=== PATIENT | male | born 1960 | race African-American/Black ===

== ENCOUNTER 2019-04-18 07:30 | Inpatient (IN) ==
[2019-04-10 12:08] LABS: Basophils % 0.5 % (0.0-0.8); Eosinophils # 0.1 10*3/uL (0.0-0.87); Eosinophils % 2.1 % (0.00-10.9); Hematocrit 44.7 VOL% (42.0-52.0); Hemoglobin 14.7 GM/DL (14.0-18.0); Lymphocytes % 45.3 % (21.2-54.2); Mean Corpuscular HGB Conc 32.9 GM/DL (32-36); Mean Corpuscular Volume 91.2 FL (87-102); Mean Platelet Volume 9.7 FL (9.6-12.0); Monocytes % 6.9 % (1.7-12.7); Neutrophils % 45.2 % (38.7-73.9); Platelet Count 249 T/CUMM (130-400); Red Cell Distribution Width 12.6 % (9.3-17.3); White Blood Count 4.4 T/CUMM (4-12)
[2019-04-10 12:10] LABS: Apearance,Urine CLEAR (Clear); Bilirubin,Urine Negative (Negative); Blood, Urine Negative (Negative); Glucose,Urine (UA) Negative (Negative); Ketones,Urine Negative (Negative); Nitrite,Urine Negative (Negative); Protein,Urine Negative; RBC,Urine 1 /HPF (0-4); Urine Color Colorless (Yellow); Urine Specific Gravity 1.001 (1.001-1.035); Urine Urobilinogen < 2.0 EU/DL (0.2-1.0)
[2019-04-10 12:18] LABS: INR 1.1; PT Patient Result 12.2 SECS (9.6-12.2); Partial Thromboplastin Time 29.8 SECS (20.8-36.0)
[2019-04-10 12:30] LABS: Albumin 3.4 G/DL (3.4-5.0); Bilirubin,Total 0.7 MG/DL (0.2-1.0); Calcium 8.7 MG/DL (8.5-10.1); Osmolality,Calculated 270.8 MOS/KG (273-304); Total Protein 7.7 G/DL (6.4-8.3)
[2019-04-26] MEDS ORDERED: VANCOMYCIN 1,000 MG VIAL ONE (05:51)
[2019-04-26] MEDS ORDERED: ceFAZolin 2,000 MG in PREMIX 1 EACH IV ONE (06:00)
[2019-04-26] MEDS ORDERED: VANCOMYCIN INJ 1,000 MG in SODIUM CHLORIDE 0.9% 250 ML IV ONE (06:00)
[2019-04-26] MEDS ORDERED: ROPIVACAINE 0.5% 30 ML VIAL ONE (06:21)
[2019-04-26] MEDS ORDERED: fentaNYL 100 MCG/2 ML VIAL ONE ×2 (06:21→09:12)
[2019-04-26] MEDS ORDERED: DEXAMETHASONE 4 MG/1 ML VIAL ONE ×2 (06:21→09:12)
[2019-04-26] MEDS ORDERED: LIDOCAINE 1% 5 ML VIAL ONE ×2 (06:21→09:11)
[2019-04-26] MEDS ORDERED: MIDAZOLAM 2 MG/2 ML VIAL ONE ×2 (06:21→09:12)
[2019-04-26] MEDS ORDERED: LACTATED RINGERS 1,000 ML IV SCH (06:30)
[2019-04-26] MEDS ORDERED: TRANEXAMIC ACID 1,000 MG/10 ML VIAL ONE (07:41)
[2019-04-26] MEDS ORDERED: BACITRACIN OINT 0.9 GM PACK TOP ONE (08:09)
[2019-04-26] MEDS ORDERED: MORPHINE 4 MG/1 ML VIAL IV PRN ×2 (09:09)
[2019-04-26] MEDS ORDERED: diphenhydrAMINE CAP 25 MG CAPSULE PO PRN (09:09)
[2019-04-26] MEDS ORDERED: ZALEPLON 5 MG CAPSULE PO PRN (09:09)
[2019-04-26] MEDS ORDERED: MAGNESIUM HYDROXIDE SUSP 30 ML UDCUP PO PRN (09:09)
[2019-04-26] MEDS ORDERED: propofoL 200 MG/20 ML VIAL IV ONE (09:11)
[2019-04-26] MEDS ORDERED: LABETALOL 20 MG/4 ML SYRINGE IV ONE (09:11)
[2019-04-26] MEDS ORDERED: KETAMINE 500 MG/10 ML VIAL ONE (09:11)
[2019-04-26] MEDS ORDERED: PHENYLEPHRINE 1 MG/10 ML SYRINGE IV ONE (09:12)
[2019-04-26] MEDS ORDERED: HYDROmorphone 2 MG/1 ML VIAL ONE (09:12)
[2019-04-26] MEDS ORDERED: GLYCOPYRROLATE 0.4 MG/2 ML VIAL ONE (09:12)
[2019-04-26] MEDS ORDERED: hydrALAZINE 20 MG/1 ML VIAL ONE (09:12)
[2019-04-26] MEDS ORDERED: NEOSTIGMINE 10 MG/10 ML VIAL ONE (09:13)
[2019-04-26] MEDS ORDERED: ROCURONIUM 100 MG/10 ML VIAL IV ONE (09:13)
[2019-04-26] MEDS ORDERED: SUCCINYLCHOLINE 200 MG/10 ML VIAL ONE (09:13)
[2019-04-26 09:21] LABS: Apearance,Urine CLEAR (Clear); Bilirubin,Urine Negative (Negative); Blood, Urine Negative (Negative); Glucose,Urine (UA) Negative (Negative); Ketones,Urine Negative (Negative); Mucus,Urine Moderate /LPF (Occasional); Nitrite,Urine Negative (Negative); Protein,Urine Negative; RBC,Urine 2 /HPF (0-4); Squamous Epithelial Cell,Urine Occasional /HPF (0-10); Urine Color Yellow (Yellow); Urine Specific Gravity 1.021 (1.001-1.035); Urine Urobilinogen < 2.0 EU/DL (0.2-1.0); WBC,Urine <1 /HPF (0-6)
[2019-04-26] MEDS: KETOROLAC 30 MG/1 ML VIAL IV SCH ×3 (10:51→20:51)
[2019-04-26] MEDS: ONDANSETRON 4 MG/2 ML VIAL IV PRN ×2 (13:35→18:54)
[2019-04-26] MEDS: ceFAZolin 2,000 MG in PREMIX 1 EACH IV SCH ×2 (13:43→20:50)
[2019-04-26] MEDS: LACTATED RINGERS 1,000 ML IV SCH ×3 (13:44→22:35)
[2019-04-26] MEDS: DOCUSATE SODIUM 100 MG CAPSULE PO SCH (20:43)
[2019-04-26] MEDS: RIVAROXABAN 10 MG TABLET PO SCH (20:43)
[2019-04-27] MEDS: KETOROLAC 30 MG/1 ML VIAL IV SCH (03:37)
[2019-04-27 04:58] LABS: Basophils % 0.1 % (0.0-0.8); Hematocrit 32.2 VOL% (42.0-52.0); Hemoglobin 11.1 GM/DL (14.0-18.0); Immature Granulocytes % 0.4 %; Immature Granulocytes Absolute 0.03 #; Lymphocytes # 1.1 10*3/uL (1.4-4.0); Lymphocytes % 15.4 % (21.2-54.2); Mean Corpuscular HGB Conc 34.5 GM/DL (32-36); Mean Corpuscular Volume 91.5 FL (87-102); Mean Platelet Volume 9.9 FL (9.6-12.0); Monocytes % 12.1 % (1.7-12.7); Platelet Count 157 T/CUMM (130-400); Red Blood Count 3.52 MC/CUMM (3.8-5.5); Red Cell Distribution Width 13.1 % (9.3-17.3)
[2019-04-27 05:45] LABS: Osmolality,Calculated 278.4 MOS/KG (273-304)
[2019-04-27] MEDS: DOCUSATE SODIUM 100 MG CAPSULE PO SCH (08:45)
[2019-04-27] MEDS: RIVAROXABAN 10 MG TABLET PO SCH (08:46)
[2019-04-27] MEDS ORDERED: MULTIVITAMIN (CENTRUM) TABLET PO SCH (09:00)
[2019-04-27] MEDS ORDERED: MULTIVITAMIN (BEROCCA) TABLET PO SCH (09:00)
[2019-04-27] MEDS ORDERED: CHOLECALCIFEROL 1,000 UNIT TABLET PO SCH (09:00)
[2019-04-27 11:56] VITALS: BP 118/66
[2019-04-27] MEDS ORDERED: CELECOXIB 200 MG CAPSULE PO SCH (15:10)
== END 2019-04-27 15:45 | disposition home health service (06) | DRG 470 ==
LOC: N.SDSINP 04-26 05:32 → N.3E 04-26 08:29
PROVIDERS: ADMIT Orthopaedic Surgery; ATTEND Orthopaedic Surgery